=== PATIENT | female | born 1995 | race Caucasian/White ===

== ENCOUNTER 2017-03-03 14:08 | Emergency (ER) | payer SELFPAY ==
[~2017-03-03] VITALS: Ht 175.3 cm; Wt 123.0 kg
[2017-03-03 14:10] VITALS: BP 136/72; PULSE 92; RESP 18; TEMP 98.5; O2SAT 98
[2017-03-03] MEDS ORDERED: CIPRHC10A RIGHT EAR (14:52)
--- NOTE | 2017-03-03 15:03 | PD ---
HPI Chief Complaint: ENT Complaint Time Seen by Provider: 14:53 Travel History International Travel<30 days: No Contact w/Intl Traveler<30days: No Traveled to known affect area: No History of Present Illness HPI 3-year-old female presents to the emergency room for evaluation of right ear pain for the past 2 weeks. Patient states it is progressively been getting worse especially over the past 2 days. She has noticed some drainage on the outside area but nothing on the pillow. She has been applying hydrogen peroxide and DeBrox without relief in symptoms. She denies fever, chills, nausea, and vomiting. She went swimming in the ocean prior to onset of symptoms. No chronic medical conditions or daily medications. PFSH Past Medical History Medical History: Denies Significant Hx Diminished Hearing: No Influenza Vaccination: No ?: Not LMP: 02/12/2017 Past Surgical History Abdominal Surgery: Yes (BILE DUCT ENLARGED) Cholecystectomy: Yes Oral Surgery: Yes (SINUS) Tonsillectomy: Yes Social History Alcohol Use: Yes Tobacco Use: Yes Allergies-Medications (Allergen,Severity, Reaction): Coded Allergies: No Known Allergies (Unverified , 03/03/17) Reported Meds & Prescriptions Reported Meds & Active Scripts Active Cipro Hc Otic Drops (Ciprofloxacin/Hydrocortisone) 0.2-1% Susp 3 Drop RIGHT EAR BID Review of Systems Except as stated in HPI: all other systems reviewed are Neg Physical Exam Narrative GENERAL: Well-nourished, well-developed female in no acute distress. Afebrile. Ambulatory. SKIN: Focused skin assessment warm/dry. HEAD: Normocephalic. EYES: No scleral icterus. No injection or drainage. NECK: Supple, trachea midline. No JVD or lymphadenopathy. EARS: Left pinnae and external canal appears within normal limits. Left tympanic membrane without erythema, dullness or perforation. Right tympanic membrane cannot be visualized because ear canal is occluded with purulent drainage and mildly edematous. Extreme tenderness to the right ear. No edema or mastoid tenderness CARDIOVASCULAR: Regular rate and rhythm without murmurs, gallops, or rubs. RESPIRATORY: Breath sounds equal bilaterally. No accessory muscle use. Data Data Last Documented VS Vital Signs Date Time Temp Pulse Resp B/P Pulse Ox O2 Delivery O2 Flow Rate FiO2 03/03/17 14:10 98.5 92 18 136/72 98 MDM Medical Decision Making Medical Screen Exam Complete: Yes Emergency Medical Condition: Yes Medical Record Reviewed: Yes Differential Diagnosis Otitis media, otitis externa, eustachian tube dysfunction Narrative Course 21-year-old female presents to the emergency room for evaluation of right ear pain for the past 2 weeks. States symptoms have progressively worsened especially last night. No fevers. Vital signs stable. Right tympanic membrane cannot be visualized because ear canal is occluded with purulent drainage and mildly edematous. Extreme tenderness to the right ear. No edema or mastoid tenderness. This is otitis externa. Patient discharged with prescription for drops and ear precautions and told to follow-up with a primary care physician or return for worsening symptoms. She understands and agrees to plan. Diagnosis Primary Impression: Otitis externa Qualified Code: H60.331 - Acute swimmer's ear of right side Referrals: Primary Care Physician Patient Instructions: General Instructions, Otitis Externa (ED) Additional Instructions: Rest and drink plenty of fluids. Apply drops to the right ear twice daily for 7 days. Keep water from getting into the ear by using earplugs. Take ibuprofen with food as directed, as needed for pain. Follow-up with a primary care physician. Return to the emergency room for worsening symptoms. Scripts Ciprofloxacin-Hydrocortisone Otic Drops (Cipro Hc Otic Drops)0.2-1% Susp3 Drop RIGHT EAR BID #1 BOTTLE Ref 0 Prov:Twin Roach MD 03/03/17 Disposition: 01 DISCHARGE HOME Condition: Stable Nevin Fenton Mar 03, 2017 15:02
== END 2017-03-03 15:05 | disposition home or self-care (01) ==
LOC: PHEFT 14:08
DX: H60.331 Swimmer's ear, right ear (principal); Z72.0 Tobacco use
CPT/HCPCS: 99283